=== PATIENT | male | born 1990 | race Caucasian/White ===

== ENCOUNTER 2020-07-02 11:52 | Emergency (ER) | payer MEDICAID ==
[~2020-07-02] VITALS: Ht 175.3 cm; Wt 100.0 kg
[2020-07-02] MEDS ORDERED: OxyCODONE HCL/ACETAMINOPHEN 5-325 MG TABLET PO ONE (13:15)
[2020-07-02] MEDS ORDERED: POVIDONE-IODINE 10% 15 ML SOLUTION UD TP ONE (13:15)
[2020-07-02] MEDS ORDERED: LIDOCAINE 1% 10 ML VIAL INJ ONE (13:15)
[2020-07-02 15:00] VITALS: BP 140/80
== END 2020-07-02 15:12 | disposition home or self-care (01) ==
LOC: EMS 11:56
DX: L02.11 Cutaneous abscess of neck (principal); L03.221 Cellulitis of neck
CPT/HCPCS: 99283; 10060; J3490

== ENCOUNTER 2020-07-04 15:49 | Emergency (ER) | payer MEDICAID ==
[~2020-07-04] VITALS: Ht 170.2 cm; Wt 90.9 kg
[2020-07-04 15:50] VITALS: BP 144/78
== END 2020-07-04 17:27 | disposition home or self-care (01) ==
LOC: EMS 15:51
DX: Z48.00 Encounter for change or removal of nonsurgical wound dressing (principal)
CPT/HCPCS: Z7502

== ENCOUNTER 2024-07-28 20:12 | Emergency (ER) | payer SELFPAY ==
[~2024-07-28] VITALS: Ht 175.3 cm; Wt 95.5 kg
[2024-07-28 20:38] VITALS: TEMP 98.2
[2024-07-28 21:39] VITALS: BP 107/63; PULSE 69; RESP 18; O2SAT 99
[2024-07-28] MEDS: KETOROLAC TROMETHAMINE 30 MG/ML VIAL IM ONE (22:58)
== END 2024-07-28 23:25 | disposition home or self-care (01) ==
LOC: EMS 20:12
DX: M25.512 Pain in left shoulder (principal)
CPT/HCPCS: 99283; 73030; 96372; J1885